=== PATIENT | female | born 1990 ===

== ENCOUNTER 2017-03-12 16:47 | Inpatient (IN) | payer BC, MEDICAID ==
[2017-03-12 16:48] VITALS: BMI 49.3
[2017-03-12] MEDS ORDERED: Sodium Chloride 0.9% 1,000 ML IV STA (18:00)
--- NOTE | 2017-03-12 18:35 | ED PDOC ---
HPI: Skin/Bite Injury Time Seen by Provider: 03/12/17 17:42 Chief Complaint (Nursing): Eye Problem Chief Complaint (Provider): Skin Injury History Per: Patient History/Exam Limitations: no limitations Onset/Duration Of Symptoms: Hrs (since earlier today) Current Symptoms Are (Timing): Still Present Location Of Injury: Right: Face Quality Of Symptoms: Painful, Swollen Additional Complaint(s): 26 year old female presents to ED with complaints of swelling and pain on right aspect of her face since this morning. Patient states that her mother popped a pimple x3 days ago on that area of her face. (-) fever, visual changes, eye pain , or pain on eye movement. Confirms that she has not taken any medication. PCP: Non KRISTIAN Past Medical History Reviewed: Historical Data, Nursing Documentation, Vital Signs Vital Signs: Last Vital Signs Temp 101.1 F H 03/12/17 16:58 Pulse 90 03/12/17 16:58 Resp BP 134/62 03/12/17 16:58 Pulse Ox 98 03/12/17 16:58 - Medical History PMH: Kidney Stones - Family History Family History: States: Unknown Family Hx - Living Arrangements Living Arrangements: With Family - Immunization History Hx Tetanus Toxoid Vaccination: No Hx Influenza Vaccination: No Hx Pneumococcal Vaccination: No - Home Medications Home Medications: Ambulatory Orders Medication Instructions Recorded Vit#96/Ferrous Fum/FA 1 tab PO DAILY 03/03/15 [] Nitrofurantoin Macrocrystal 100 mg PO BID #14 capsule 02/07/16 [Macrodantin] - Allergies Allergies/Adverse Reactions: Allergies Allergy/AdvReac Type Severity Reaction Status Date / Time No Known Allergies Allergy Verified 03/22/15 23:33 Review of Systems ROS Statement: Except As Marked, All Systems Reviewed And Found Negative Constitutional: Positive for: Fever Eyes: Negative for: Pain, Vision Change, Other (pain on eye movement ) Musculoskeletal: Positive for: Other (Facial swelling and pain on right/lateral aspect of face) Physical Exam - Reviewed Nursing Documentation Reviewed: Yes Vital Signs Reviewed: Yes - Physical Exam Appears: Positive for: Non-toxic, No Acute Distress Skin: Positive for: Warm, Dry. Negative for: Normal Color (Right lateral aspect of face: 0.5 cm lesion, no active discharge. Edema, induration.) Eye Exam: Positive for: Normal appearance, EOMI, PERRL, Other (edema to lateral right eye, no fluctuance, no proptosis). Negative for: Conjunctival injection ENT: Positive for: Other (preauricular adenopathy) Cardiovascular/Chest: Positive for: Regular Rate, Rhythm. Negative for: Murmur Respiratory: Positive for: Normal Breath Sounds. Negative for: Respiratory Distress Gastrointestinal/Abdominal: Positive for: Normal Exam, Soft. Negative for: Tenderness Back: Positive for: Normal Inspection Extremity: Positive for: Normal ROM. Negative for: Deformity Neurologic/Psych: Positive for: Alert, Oriented. Negative for: Motor/Sensory Deficits - ECG O2 Sat by Pulse Oximetry: 98 (RA) Pulse Ox Interpretation: Normal Medical Decision Making Medical Decision Makin Initial impression: facial cellulitis Initial plan: * VBG Shock Panel * Labs * NS IV * Toradol 15mg IV * Tylenol 650mg PO * Vancomycin IVPB * BCx * Wound Cx Scribe Attestation: Documented by Mamta Arreola acting as a scribe for Adali Osborn MD. Scribe Attestation: All medical record entries made by the Scribe were at my direction and personally dictated by me. I have reviewed the chart and agree that the record accurately reflects my personal performance of the history, physical exam, medical decision making, and the department course for this patient. I have also personally directed, reviewed, and agree with the discharge instructions and disposition.
[2017-03-12] MEDS ORDERED: Vancomycin 1 g Inj ONE (18:45)
[2017-03-12 18:48] LABS: VENOUS BLOOD GAS BASE EXCESS -0.6 mmol/L (0.0-2.0); VENOUS BLOOD GAS PCO2 43 mmHg (40-60); VENOUS BLOOD PH 7.37 (7.32-7.43)
[2017-03-12 19:01] LABS: BASO # 0.1 K/uL (0.0-0.2); BASO % 0.4 % (0.0-2.0); EOS # 0.4 K/uL (0.0-0.7); EOS % 2.3 % (0.0-4.0); HEMATOCRIT 40.2 % (34.0-47.0); LYMPH # 2.3 K/uL (1.0-4.3); LYMPH % 13.1 % (20.0-40.0); MEAN CELL VOLUME 83.5 fl (81.0-99.0); MEAN CORPUSCULAR HEMOGLOBIN 26.1 pg (27.0-31.0); MEAN CORPUSCULAR HGB CONC 31.3 g/dL (33.0-37.0); MEAN PLATELET VOLUME 8.8 fl (7.2-11.7); MONO # 1.2 K/uL (0.0-0.8); MONO % 6.9 % (0.0-10.0); NEUT # 13.7 K/uL (1.8-7.0); NEUT % 77.3 % (50.0-75.0); RED CELL DISTRIBUTION WIDTH 15.4 % (11.5-14.5); WHITE BLOOD COUNT 17.7 K/uL (4.8-10.8)
[2017-03-12 19:15] LABS: ALB/GLOB RATIO 1.3 (1.0-2.1); ALKALINE PHOSPHATASE 83 U/L (38-126); ALT/SGPT 33 U/L (9-52); AST/SGOT 30 U/L (14-36); BILIRUBIN,TOTAL 0.2 mg/dl (0.2-1.3); BLOOD UREA NITROGEN 11 mg/dl (7-17); CALCIUM 9.3 mg/dL (8.4-10.2); CARBON DIOXIDE 23 mmol/L (22-30); CHLORIDE 106 mmol/L (98-107); GFR AFRICAN-AMERICAN > 60; GLUCOSE,RANDOM 90 mg/dL (65-105); POTASSIUM 3.8 MMOL/L (3.6-5.0); SODIUM 143 mmol/l (132-148); TOTAL PROTEIN 8.2 G/DL (6.3-8.2)
--- NOTE | 2017-03-12 19:23 | ED PDOC ---
- Laboratory Results Result Diagrams: 03/12/17 18:30 03/12/17 18:30 - ECG O2 Sat by Pulse Oximetry: 98 (RA) Medical Decision Making Medical Decision Makin Patient signed out to me from Dr. Osborn pending labs and discharge with antibiotics. wbc elevated pt will be adm for iv abx for facial cellulitis 2117 Patient will be admitted to med/surg under Dr. Justina gardiner aware vanco was given Scribe Attestation: Documented by Mamta Arreola acting as a scribe for Enrique Rivas MD. Scribe Attestation: All medical record entries made by the Scribe were at my direction and personally dictated by me. I have reviewed the chart and agree that the record accurately reflects my personal performance of the history, physical exam, medical decision making, and the department course for this patient. I have also personally directed, reviewed, and agree with the discharge instructions and disposition. Disposition Counseled Patient/Family Regarding: Studies Performed, Diagnosis - Clinical Impression Clinical Impression: Cellulitis - POA Present On Arrival: None - Disposition Disposition: Admitted as In-Patient Disposition Time: 21:00 Condition: STABLE
[2017-03-13] MEDS ORDERED: Pneumococcal 23-Valent Vaccine IM ONE (09:00)
[2017-03-13] MEDS ORDERED: Piperacillin/Tazobact 3.375 GM in Sodium Chloride 0.9% 100 ML IVPB SCH (09:45)
[2017-03-13] MEDS ORDERED: Iohexol 300 100 ML IJ ONE (12:28)
[2017-03-13] MEDS ORDERED: Sodium Chloride 0.9% 50 ML IV ONE (12:28)
--- NOTE | 2017-03-13 13:02 | CP.PCM.CON ---
<Catie English - Last Filed: 03/13/17 13:39> History of Present Illness - History of Present Illness History of Present Illness: General Surgery consult note for Dr. Brice Consulted for: facial cellulitis vs abscess Patient is a 26F with PMH of scoliosis and PSH of BL breast reduction who presented for facial swelling and erythema. Patient had a pimple on her right denominational 5 days that she attempted to pop. Over the course of the weekend the area became more swollen and erythematous and yesterday spread to the right orbit so she came to the ER. Patient denies any current drainage from the site. Patient states the vision in her right eye is blurry due to constant drainage of clear fluid and that she has a right sided headach, but denies any difficulty hearing, drainage or fullness in the mouth, or any fevers or chills. States that this has never happened to her before. Afebrile, VSS WBC: 17.7 PMH: scoliosis PSH: BL breast reduction ALL: NKDA Review of Systems - Review of Systems All systems: reviewed and no additional remarkable complaints except (as per HPI ) - Constitutional Constitutional: Headache. absent: Chills, Fever, Weakness - EENT Eyes: Blurred Vision (right eye), Discharge (clear watery discharge from right eye), Other (renzo-orbital swelling) Ears: absent: Ear Discharge, Ear Pain, Dizziness Nose/Mouth/Throat: absent: Nasal Obstruction, Nose Pain, Sinus Pressure, Dental Pain, Mouth Lesions, Mouth Pain - Cardiovascular Cardiovascular: absent: Chest Pain, Dyspnea, Dyspnea on Exertion - Respiratory Respiratory: absent: Dyspnea, Dyspnea on Exertion, Wheezing - Gastrointestinal Gastrointestinal: absent: Abdominal Pain, Nausea, Vomiting - Musculoskeletal Musculoskeletal: absent: Neck Pain, Numbness, Tingling - Integumentary Integumentary: As Per HPI - Neurological Neurological: absent: Dizziness, Numbness, Tingling Past Patient History - Past Medical History & Family History Past Medical History?: No - Past Social History Smoking Status: Light Smoker < 10 Cigarettes Daily - RENAL Hx Kidney Stones: Yes - MUSCULOSKELETAL/RHEUMATOLOGICAL Hx Falls: No Hx Osteoarthritis: Yes Other/Comment: scoliosis - GASTROINTESTINAL Other/Comment: kidney stones - GENITOURINARY/GYNECOLOGICAL Other/Comment: std - PSYCHIATRIC Hx Substance Use: No - SURGICAL HISTORY Other/Comment: breast reduction 2014, d&c - ANESTHESIA Hx Anesthesia: Yes Hx Anesthesia Reactions: No Meds Allergies/Adverse Reactions: Allergies Allergy/AdvReac Type Severity Reaction Status Date / Time No Known Allergies Allergy Verified 03/22/15 23:33 - Medications Medications: Current Medications Acetaminophen (Tylenol 325mg Tab) 650 mg PO Q4 PRN PRN Reason: Headache Last Admin: 03/13/17 08:58 Dose: 650 mg Vancomycin HCl 1 gm/ Sodium (Chloride) 250 mls @ 166.667 mls/hr IVPB Q12 [facility] Piperacillin Sod/Tazobactam (Sod 3.375 gm/ Sodium Chloride) 100 mls @ 100 mls/ hr IVPB Q8 [facility] Ketorolac Tromethamine (Toradol) 15 mg IVP Q6 PRN PRN Reason: Pain, moderate (4-7) Physical Exam - Constitutional Appears: Well, Non-toxic, No Acute Distress - Head Exam Additional comments: superficial wound approximatley 1cm long on the superior right denominational with surrounding area of erythema, swelling, and induration extending from the denominational up to the hairline superiorly, the right cheek inferiorly, and the right orbit with moderate edema of the renzo-orbital area. No distinct fluctuance or expressible drainage - Eye Exam Eye Exam: EOMI, Periorbital swelling (Right), PERRL. absent: Conjunctival injection, Scleral icterus Pupil Exam: PERRL Additional comments: Right eye watery but No thick or discolored discharge from the right eye - ENT Exam ENT Exam: Mucous Membranes Moist, Normal Oropharynx Additional comments: No swelling or erythema of the palate, no drainage or lesions - Neck Exam Neck exam: Positive for: Full Rom, Lymphadenopathy (anterior cervical). Negative for: Tenderness - Respiratory Exam Respiratory Exam: NORMAL BREATHING PATTERN. absent: Accessory Muscle Use, Respiratory Distress - Cardiovascular Exam Cardiovascular Exam: RRR - GI/Abdominal Exam GI & Abdominal Exam: Soft. absent: Distended, Tenderness - Extremities Exam Extremities exam: Positive for: pedal pulses present. Negative for: calf tenderness, pedal edema - Neurological Exam Neurological exam: Alert, CN II-XII Intact, Oriented x3 - Psychiatric Exam Psychiatric exam: Normal Affect, Normal Mood - Skin Skin Exam: Dry, Normal Color, Warm Additional comments: except as noted in the head/eye exam Results - Vital Signs Recent Vital Signs: Last Vital Signs Temp 98.3 F 03/13/17 09:00 Pulse 76 03/13/17 07:34 Resp 18 03/13/17 07:34 BP 130/87 03/13/17 07:34 Pulse Ox 98 03/13/17 07:34 - Labs Result Diagrams: 03/12/17 18:30 03/12/17 18:30 Assessment & Plan - Assessment and Plan (Free Text) Assessment: 26F with cellulitis of the right upper face and R renzo-oribital swelling WBC: 17.7 No palpable abscess renzo-orbital swelling Plan: -CT of the face and orbit to rule out any renzo-orbital cellulitis and determine extent of involvement -Continue IV antibiotics -No plans for immediate surgical intervention: follow up CT results to determine if there is a drainable collection -Warm compresses -analgesia, anti-emetics -SCD's, GI ppx -management per Primary Further recs per Dr. Yuniel English, PGY1 <Marco Brice - Last Filed: 03/14/17 21:24> Meds - Medications Medications: Current Medications Acetaminophen (Tylenol 325mg Tab) 650 mg PO Q4 PRN PRN Reason: Headache Last Admin: 03/13/17 08:58 Dose: 650 mg Piperacillin Sod/Tazobactam (Sod 3.375 gm/ Sodium Chloride) 100 mls @ 100 mls/ hr IVPB Q8@0500,1300,2100 [facility] Last Admin: 03/14/17 12:18 Dose: 100 mls/hr Vancomycin HCl 1 gm/ Sodium (Chloride) 250 mls @ 166.667 mls/hr IVPB Q12@0200, 1400 [facility] Last Admin: 03/14/17 13:31 Dose: 166.667 mls/hr Sodium Chloride (Sodium Chloride 0.9%) 1,000 mls @ 125 mls/hr IV .Q8H [facility] Stop: 03/15/17 16:00 Ketorolac Tromethamine (Toradol) 15 mg IVP Q6 PRN PRN Reason: Pain, moderate (4-7) Last Admin: 03/14/17 20:00 Dose: 15 mg Results - Vital Signs Recent Vital Signs: Last Vital Signs Temp 98.2 F 03/14/17 16:08 Pulse 71 03/14/17 16:08 Resp 16 03/14/17 16:08 BP 113/73 03/14/17 16:08 Pulse Ox 98 03/14/17 16:08 - Labs Result Diagrams: 03/14/17 07:30 03/14/17 07:30 Labs: Laboratory Results - last 24 hr 03/14/17 03/14/17 03/14/17 07:30 07:30 12:20 WBC 10.8 RBC 4.17 Hgb 11.0 L Hct 34.7 MCV 83.3 MCH 26.5 L MCHC 31.8 L RDW 15.2 H Plt Count 287 PT 11.8 INR 1.0 APTT 27.2 Sodium 141 Potassium 4.0 Chloride 110 H Carbon Dioxide 22 Anion Gap 13 BUN 10 Creatinine 0.8 Est GFR ( Amer) > 60 Est GFR (Non-Af Amer) > 60 Random Glucose 86 Calcium 8.7 Attending/Attestation - Attestation I have personally seen and examined this patient.: Yes I have fully participated in the care of the patient.: Yes I have reviewed all pertinent clinical information: Yes Notes (Text): 03/14/17 21:22 Pt was seen and examined at bedside on 03/13/17 Agree with above note and assessment Pt with Facial cellulitis with right Periorbital edema No obvious abscess IV antibiotics No need for I & D at present Plan d.w pt in detail.
--- NOTE | 2017-03-13 13:27 | CT ---
PROCEDURE: CT scan orbits dated 03/13/2017 HISTORY: Rule out orbital cellulitis COMPARISON: No prior TECHNIQUE: Following intravenous injection of approximately 95 cc Omnipaque 300 contrast contiguous helical/ transaxial sections of the orbits were obtained. Coronal and sagittal reformats were generated. Radiation dose: Total exam DLP = 430.21 mGy-cm. This CT exam was performed using one or more of the following dose reduction techniques: Automated exposure control, adjustment of the mA and/or kV according to patient size, and/or use of iterative reconstruction technique. . FINDINGS: Findings: Current study reveals mild right periorbital soft tissue swelling most pronounced in the lateral periorbital region extending posteriorly over right frontoparietal region and infratemporal fossa. There is also mild inferior extension into the premaxillary soft tissues. No definitive discrete fluid collection or abscess seen. There is no evidence of preseptal extension. Globes are intact and lenses appropriately located. No retrobulbar hemorrhages or collections. Optic nerves and extraocular musculature unremarkable. The frontal sinuses are slightly underpneumatized. Remaining visualized paranasal sinuses well-developed and currently well-aerated. Incidental note made of cavum septum pellucidum and vergae. Note also made of an in situ right nares ring. Impression: Findings consistent with right-sided periorbital and facial cellulitis however no evidence of discrete fluid collection or abscess. No evidence of retro septal extension.
[2017-03-13 17:59] LABS: BASO # 0.1 K/uL (0.0-0.2); BASO % 0.4 % (0.0-2.0); EOS # 0.4 K/uL (0.0-0.7); EOS % 3.4 % (0.0-4.0); HEMATOCRIT 34.1 % (34.0-47.0); LYMPH # 2.8 K/uL (1.0-4.3); LYMPH % 23.2 % (20.0-40.0); MEAN CELL VOLUME 82.2 fl (81.0-99.0); MEAN CORPUSCULAR HEMOGLOBIN 26.9 pg (27.0-31.0); MEAN CORPUSCULAR HGB CONC 32.8 g/dL (33.0-37.0); MEAN PLATELET VOLUME 8.6 fl (7.2-11.7); NEUT # 7.7 K/uL (1.8-7.0); RED CELL DISTRIBUTION WIDTH 15.3 % (11.5-14.5); WHITE BLOOD COUNT 11.9 K/uL (4.8-10.8)
--- NOTE | 2017-03-13 18:37 | HP ---
CHIEF COMPLAINT: Facial swelling and pain. HISTORY OF PRESENT ILLNESS: This is a 26-year-old female without significant past medical history wh o had a small pimple on her right episcopalian a few days ago, which she with help from mother tried to pre ss and burst it out, and then patient started having swelling, redness, fever, malaise of the face, s o patient was brought to Emergency Room where the patient was found to have cellulitis of face and wa s admitted for further management. REVIEW OF SYSTEMS: Positive for fever, malaise, swelling of face and eyelids, and purulent discharge from the opening. Review of systems otherwise is negative for headache, dizziness, syncope, loss of consciousness, chest pain, shortness of breath, nausea, vomiting, diarrhea, constipation. Review of systems of all other organ systems is unremarkable. PAST MEDICAL HISTORY: Unremarkable. PAST SURGICAL HISTORY: Unremarkable. PERSONAL HISTORY: The patient is currently a nonsmoker or social drinker. No substance abuse. MEDICATIONS: The patient is not on any medications. ALLERGIES: The patient is not allergic to any medication. FAMILY HISTORY: Noncontributory. PHYSICAL EXAMINATION: GENERAL: Well-built, well-nourished, morbidly obese female in no acute distress. VITAL SIGNS: Temperature 97.9, pulse 77, respirations 20, blood pressure 110/74. HEENT: Pupils reacting to light. No JVD, no thyromegaly, no lymphadenopathy, no nystagmus. Normoce phalic, atraumatic skull. HEART: S1, S2 normal, regular. No significant murmur, gallop, or rub is heard. LUNGS: Show good bilateral air entry. No rales or rhonchi. ABDOMEN: Soft, nontender, no organomegaly, no fluid. Bowel sounds are plus. EXTREMITIES: No edema, no calf swelling. No tenderness, no acute ischemia. CENTRAL NERVOUS SYSTEM: Essentially unchanged. FACE: Facial exam shows marked swelling and cellulitis by its opening on right episcopalian with some puru lent base. Vision is normal, but patient has significant edema on both eyelids. DIAGNOSTIC DATA: Available diagnostic data reviewed. WBC 17.7, hemoglobin 12.6, hematocrit 40.2, pl atelets 313. Sodium 142, potassium 3.8, chloride 106, bicarb 23, BUN 11, creatinine 0.8. SMA-12 is unremarkable. ADMITTING IMPRESSION: Facial cellulitis, morbid obesity. PLAN: As ordered. Case and plan discussed with patient. Lucas Horn MD cc: [phone] TT: 03/13/2017 18:37:15 peggy
[2017-03-13] MEDS: Piperacillin/Tazobact 3.375 GM in Sodium Chloride 0.9% 100 ML IVPB SCH (21:38)
[2017-03-14] MEDS: Piperacillin/Tazobact 3.375 GM in Sodium Chloride 0.9% 100 ML IVPB SCH ×3 (04:10→22:16)
--- NOTE | 2017-03-14 06:42 | CP.PCM.PN ---
Subjective - Date & Time of Evaluation Date of Evaluation: 03/14/17 Time of Evaluation: 06:42 - Subjective Subjective: Patient seen and examined at bedside with attending. 26F reports pain has improved but says she had drainage last night onto her pillow. She denies any SOB, chest pain, N/V, dysuria. Objective - Vital Signs/Intake and Output Vital Signs (last 24 hours): Temp Pulse Resp BP Pulse Ox 37.1 C 64 18 106/61 98 03/14/17 02:26 03/14/17 02:26 03/14/17 02:26 03/14/17 02:26 03/14/17 02:26 - Medications Medications: Current Medications Acetaminophen (Tylenol 325mg Tab) 650 mg PO Q4 PRN PRN Reason: Headache Last Admin: 03/13/17 08:58 Dose: 650 mg Piperacillin Sod/Tazobactam (Sod 3.375 gm/ Sodium Chloride) 100 mls @ 100 mls/ hr IVPB Q8@0500,1300,2100 [facility] Last Admin: 03/14/17 04:10 Dose: 100 mls/hr Vancomycin HCl 1 gm/ Sodium (Chloride) 250 mls @ 166.667 mls/hr IVPB Q12@0200, 1400 [facility] Last Admin: 03/14/17 01:16 Dose: 166.667 mls/hr Ketorolac Tromethamine (Toradol) 15 mg IVP Q6 PRN PRN Reason: Pain, moderate (4-7) Last Admin: 03/14/17 06:38 Dose: 15 mg - Labs Labs: 03/13/17 17:52 - Constitutional Appears: Well, Non-toxic, No Acute Distress - Head Exam Head Exam: ATRAUMATIC. absent: NORMAL INSPECTION (3cm abscess with trace purulent drainage at RIGHT temporal area) - Eye Exam Eye Exam: EOMI, Normal appearance, PERRL. absent: Nystagmus, Periorbital swelling, Periorbital tenderness - ENT Exam ENT Exam: Mucous Membranes Moist, Normal Exam - Neck Exam Neck Exam: Full ROM, Normal Inspection - Respiratory Exam Respiratory Exam: Clear to Ausculation Bilateral, NORMAL BREATHING PATTERN. absent: Rales, Wheezes - Cardiovascular Exam Cardiovascular Exam: REGULAR RHYTHM, +S1, +S2. absent: JVD - GI/Abdominal Exam GI & Abdominal Exam: Soft, Normal Bowel Sounds. absent: Tenderness - Extremities Exam Extremities Exam: Full ROM, Normal Capillary Refill, Normal Inspection. absent : Pedal Edema - Neurological Exam Neurological Exam: Alert, Awake, Oriented x3 - Psychiatric Exam Psychiatric exam: Normal Affect, Normal Mood - Skin Skin Exam: Normal Color, Warm Assessment and Plan (1) Cellulitis and abscess of face Assessment & Plan: Cellulitis has improved and abscess inadequately draining, surgery to I&D tomorrow 03/15. Culture- MRSA. - ID Consult (Dr Spears): c/w Zosyn/Vancomycin; January d/c on Clindamycin or Bactrim - Surgery Consult: I&D in the AM, NPO/IVF, HOLD Lovenox, SCDs Status: Acute (2) DVT prophylaxis Assessment & Plan: SCDs until after surgical procedure Status: Acute
[2017-03-14 07:59] LABS: HEMATOCRIT 34.7 % (34.0-47.0); MEAN CELL VOLUME 83.3 fl (81.0-99.0); MEAN CORPUSCULAR HEMOGLOBIN 26.5 pg (27.0-31.0); MEAN CORPUSCULAR HGB CONC 31.8 g/dL (33.0-37.0); RED CELL DISTRIBUTION WIDTH 15.2 % (11.5-14.5); WHITE BLOOD COUNT 10.8 K/uL (4.8-10.8)
[2017-03-14 08:16] LABS: BLOOD UREA NITROGEN 10 mg/dl (7-17); CALCIUM 8.7 mg/dL (8.4-10.2); CARBON DIOXIDE 22 mmol/L (22-30); CHLORIDE 110 mmol/L (98-107); GFR AFRICAN-AMERICAN > 60; GLUCOSE,RANDOM 86 mg/dL (65-105); SODIUM 141 mmol/l (132-148)
--- NOTE | 2017-03-14 09:35 | PQF BMI ---
This form is a permanent part of the medical record 03/14/17 Dr. Horn, Would you please document the BMI in your progress note. Documentation of morbid obesity. As per the EMR the patient is listed as 4'8", 210 pounds with a BMI of 47.1 Clarification of your documentation is requested to better reflect the severity of illness and intensity of treatment of your patient. Indicators present [x] Documented BMI>40 [] Nutritional/Drier Operator Helper consults [] 100 pounds or more over ideal body weight [] Documented BMI / HT & WT [] Other : [] Location in the medical record that reflects the above clinical findings: [] Other Treatment Provided: [] PHYSICIAN'S RESPONSE Based on your medical judgment of the clinical indicators outlined above, please define the following: [] Morbid obesity [] Obesity [] BMI of [] Other [] [] If unable to determine, please check the box, sign and date. Present On Admission (POA) Indicator: [] Present at the time of admission [] Not present at the time of admission [] Clinically Undetermined In responding to this query, please exercise your independent professional judgment. The fact that a question is asked does not imply that any particular answer is desired or expected. Thank you for your clarification on this documentation. If you have any questions please call:[phone] * Thank you, Donna Niño RN CDMP MTDD
--- NOTE | 2017-03-14 12:10 | CP.PCM.PN ---
<EnglishCatie montes de oca - Last Filed: 03/14/17 12:12> Subjective - Date & Time of Evaluation Date of Evaluation: 03/14/17 Time of Evaluation: 07:50 - Subjective Subjective: Pt s/e at bedside this AM. Patient states that pain is improved and swelling is decreased and she no longer has watery discharge or blurring vision in her right eye. Also states that a small amount of drainage began last night with the warm compresses Objective - Vital Signs/Intake and Output Vital Signs (last 24 hours): Temp Pulse Resp BP Pulse Ox 98.4 F 71 18 110/74 97 03/14/17 08:40 03/14/17 08:40 03/14/17 08:40 03/14/17 08:40 03/14/17 08:40 - Medications Medications: Current Medications Acetaminophen (Tylenol 325mg Tab) 650 mg PO Q4 PRN PRN Reason: Headache Last Admin: 03/13/17 08:58 Dose: 650 mg Piperacillin Sod/Tazobactam (Sod 3.375 gm/ Sodium Chloride) 100 mls @ 100 mls/ hr IVPB Q8@0500,1300,2100 [facility] Last Admin: 03/14/17 04:10 Dose: 100 mls/hr Vancomycin HCl 1 gm/ Sodium (Chloride) 250 mls @ 166.667 mls/hr IVPB Q12@0200, 1400 [facility] Last Admin: 03/14/17 01:16 Dose: 166.667 mls/hr Sodium Chloride (Sodium Chloride 0.9%) 1,000 mls @ 125 mls/hr IV .Q8H [facility] Stop: 03/15/17 16:00 Ketorolac Tromethamine (Toradol) 15 mg IVP Q6 PRN PRN Reason: Pain, moderate (4-7) Last Admin: 03/14/17 11:46 Dose: 15 mg - Labs Labs: 03/14/17 07:30 03/14/17 07:30 - Constitutional Appears: Well, Non-toxic, No Acute Distress - Head Exam Head Exam: ATRAUMATIC, NORMOCEPHALIC Additional comments: 1cm long laceration in the right temporal skin. No expressible drainage. Area of swelling approximately 3cm in circumference with induration and mild fluctuance. Surrounding erythema resolved. - Eye Exam Eye Exam: EOMI. absent: Conjunctival injection, Scleral icterus Additional comments: Trace right renzo-orbital swelling much improved since yesterday. - ENT Exam ENT Exam: Mucous Membranes Moist, Normal Oropharynx - Neck Exam Neck Exam: Full ROM, Normal Inspection. absent: Tenderness - Respiratory Exam Respiratory Exam: NORMAL BREATHING PATTERN. absent: Accessory Muscle Use, Respiratory Distress - Cardiovascular Exam Cardiovascular Exam: RRR - GI/Abdominal Exam GI & Abdominal Exam: Soft. absent: Distended - Extremities Exam Extremities Exam: absent: Calf Tenderness, Pedal Edema, Tenderness - Neurological Exam Neurological Exam: Alert, Awake, Oriented x3 - Psychiatric Exam Psychiatric exam: Normal Affect, Normal Mood - Skin Additional comments: Warm, dry, and intact except as noted in the head exam Assessment and Plan - Assessment and Plan (Free Text) Assessment: 26F with cellulitis and abscess of the right upper face afebrile, VSS Erythema/swelling much improved since yesterday, with only trace renzo-orbital swelling More distinct area of subcutaneous swelling with mild fluctuance CT of the face and orbit 03/13 showed cellulitis and swelling in the renzo- orbital structures but no involvement extending deep to the septum WBC: 10.8 down from 17.7 yesterday Plan: -OR tomorrow AM for I&D of R facial abscess -Continue IV antibiotics -Warm compresses -NPO after midnight with IVF -analgesia, anti-emetics -SCD's, GI ppx -management per Primary Discussed with Dr. Yuniel English, PGY1 <Marco Brice - Last Filed: 03/14/17 21:30> Objective - Vital Signs/Intake and Output Vital Signs (last 24 hours): Temp Pulse Resp BP Pulse Ox 98.2 F 71 16 113/73 98 03/14/17 16:08 03/14/17 16:08 03/14/17 16:08 03/14/17 16:08 03/14/17 16:08 - Medications Medications: Current Medications Acetaminophen (Tylenol 325mg Tab) 650 mg PO Q4 PRN PRN Reason: Headache Last Admin: 03/13/17 08:58 Dose: 650 mg Piperacillin Sod/Tazobactam (Sod 3.375 gm/ Sodium Chloride) 100 mls @ 100 mls/ hr IVPB Q8@0500,1300,2100 [facility] Last Admin: 03/14/17 12:18 Dose: 100 mls/hr Vancomycin HCl 1 gm/ Sodium (Chloride) 250 mls @ 166.667 mls/hr IVPB Q12@0200, 1400 [facility] Last Admin: 03/14/17 13:31 Dose: 166.667 mls/hr Sodium Chloride (Sodium Chloride 0.9%) 1,000 mls @ 125 mls/hr IV .Q8H [facility] Stop: 03/15/17 16:00 Ketorolac Tromethamine (Toradol) 15 mg IVP Q6 PRN PRN Reason: Pain, moderate (4-7) Last Admin: 03/14/17 20:00 Dose: 15 mg - Labs Labs: 03/14/17 07:30 03/14/17 07:30 PT 11.8 Seconds (9.8-13.1) 03/14/17 12:20 INR 1.0 (0.9-1.2) 03/14/17 12:20 APTT 27.2 Seconds (25.6-37.1) 03/14/17 12:20 Attending/Attestation - Attestation I have personally seen and examined this patient.: Yes I have fully participated in the care of the patient.: Yes I have reviewed all pertinent clinical information, including history, physical exam and plan: Yes Notes (Text): 03/14/17 21:28 Pt was seen and examined at bedside on 03/14/17 Agree with above note and assessment Pt with improving facial cellulitis Area of flactuation with possible abscess IV antibiotics OR tomorrow for I & D Consent Plan d.w pt in detail. Risk and benefit explained in detail.
[2017-03-14 13:52] LABS: PARTIAL THROMBOPLASTIN TIME 27.2 Seconds (25.6-37.1)
--- NOTE | 2017-03-14 17:48 | CP.PCM.PN ---
Subjective - Date & Time of Evaluation Date of Evaluation: 03/14/17 Time of Evaluation: 17:40 - Subjective Subjective: I D NOTE PATIENT IS COMPLAINING OF PRESSURE BEHIND EYE ,AND SOME VIEWING DISCOMFORT WILL HAVE SURGICAL DRAINAGE TOMORROW HAS MRSA WOULD CONTINUE VANCOMYCIN/ZOSYN DISCUSSED CASE IN DETAIL C Objective - Vital Signs/Intake and Output Vital Signs (last 24 hours): Temp Pulse Resp BP Pulse Ox 98.2 F 71 16 113/73 98 03/14/17 16:08 03/14/17 16:08 03/14/17 16:08 03/14/17 16:08 03/14/17 16:08 - Medications Medications: Current Medications Acetaminophen (Tylenol 325mg Tab) 650 mg PO Q4 PRN PRN Reason: Headache Last Admin: 03/13/17 08:58 Dose: 650 mg Piperacillin Sod/Tazobactam (Sod 3.375 gm/ Sodium Chloride) 100 mls @ 100 mls/ hr IVPB Q8@0500,1300,2100 [facility] Last Admin: 03/14/17 12:18 Dose: 100 mls/hr Vancomycin HCl 1 gm/ Sodium (Chloride) 250 mls @ 166.667 mls/hr IVPB Q12@0200, 1400 [facility] Last Admin: 03/14/17 13:31 Dose: 166.667 mls/hr Sodium Chloride (Sodium Chloride 0.9%) 1,000 mls @ 125 mls/hr IV .Q8H [facility] Stop: 03/15/17 16:00 Ketorolac Tromethamine (Toradol) 15 mg IVP Q6 PRN PRN Reason: Pain, moderate (4-7) Last Admin: 03/14/17 11:46 Dose: 15 mg - Labs Labs: 03/14/17 07:30 03/14/17 07:30 PT 11.8 Seconds (9.8-13.1) 03/14/17 12:20 INR 1.0 (0.9-1.2) 03/14/17 12:20 APTT 27.2 Seconds (25.6-37.1) 03/14/17 12:20
[2017-03-15] MEDS: Sodium Chloride 0.9% 1,000 ML IV SCH ×2 (00:24→09:50)
[2017-03-15] MEDS: Piperacillin/Tazobact 3.375 GM in Sodium Chloride 0.9% 100 ML IVPB SCH ×3 (05:10→20:45)
[2017-03-15 07:14] LABS: HEMATOCRIT 34.9 % (34.0-47.0); MEAN CELL VOLUME 83.2 fl (81.0-99.0); MEAN CORPUSCULAR HGB CONC 32.5 g/dL (33.0-37.0); RED CELL DISTRIBUTION WIDTH 15.5 % (11.5-14.5); WHITE BLOOD COUNT 10.8 K/uL (4.8-10.8)
[2017-03-15 07:26] LABS: BLOOD UREA NITROGEN 11 mg/dl (7-17); CALCIUM 8.6 mg/dL (8.4-10.2); CARBON DIOXIDE 23 mmol/L (22-30); CHLORIDE 108 mmol/L (98-107); GFR AFRICAN-AMERICAN > 60; GLUCOSE,RANDOM 86 mg/dL (65-105); SODIUM 141 mmol/l (132-148)
--- NOTE | 2017-03-15 08:25 | PN ---
DATE: 03/15/2017 The patient seen and examined. Interim events noted. Consults noted, appreciated. Head Miller foll owup and interventions noted and appreciated. The patient remains in isolation room because of MRSA in abscess. The patient feels okay. , but no chest pain, no shortness of breath. PHYSICAL EXAMINATION: GENERAL: The patient is in no acute distress. VITAL SIGNS: Stable. HEART: S1, S2 normal, regular. LUNGS: Good bilateral air entry. ABDOMEN: Soft, nontender. EXTREMITIES: No edema, no calf swelling, no tenderness, no acute ischemia. CENTRAL NERVOUS SYSTEM: Essentially unchanged. DIAGNOSTIC DATA: Available reviewed. Wound culture is positive for MRSA, sensitive to current antib iotic of vancomycin. PLAN: As ordered. Case and plan discussed with patient. Lucas oHrn MD cc: [id number] TT: 03/15/2017 08:24:49 Confirmation # [id number] Dictation # [id number] en
--- NOTE | 2017-03-15 10:13 | RAD ---
HISTORY: Pre-op COMPARISON: None available. TECHNIQUE: Chest PA and lateral FINDINGS: LUNGS: No focal consolidation. Please note that chest x-ray has limited sensitivity for the detection of pulmonary masses. PLEURA: No significant pleural effusion identified. No definite pneumothorax . CARDIOVASCULAR: The cardiomediastinal silhouette appears within normal limits of size. OSSEOUS STRUCTURES: No acute osseous abnormality identified. VISUALIZED UPPER ABDOMEN: Unremarkable. OTHER FINDINGS: None. IMPRESSION: No focal consolidation, significant pleural effusion, or definite pneumothorax identified.
[2017-03-15] MEDS ORDERED: Bupivacaine 0.5% 50 ML IJ ONE (11:30)
[2017-03-15] MEDS ORDERED: HYDROmorphone 0.5 mg/0.5 ml ISec IVP PRN (12:02)
[2017-03-15] MEDS ORDERED: Lactated Ringer's 500 ML IV ONE (12:03)
--- NOTE | 2017-03-15 12:08 | PCM.SURG1 ---
Surgeon's Initial Post Op Note - Surgeon's Notes Surgeon: Dr. Brice Concierge: Dr. Robles Type of Anesthesia: IV Sedation, Local Anesthesia Administered By: Adis Pre-Operative Diagnosis: Right forehead abscess Operative Findings: same Post-Operative Diagnosis: same Operation Performed: INcision and Drainage R Forehead Abscess Specimen/Specimens Removed: culture Estimated Blood Loss: EBL {In ML}: 5 Blood Products Given: N/A Drains Used: No Drains Post-Op Condition: Good Date of Surgery/Procedure: 03/15/17 Time of Surgery/Procedure: 12:07
[2017-03-15] MEDS ORDERED: Oxycodone/Acetaminophen 5/325 mg Tab PO PRN (12:11)
--- NOTE | 2017-03-15 15:15 | CARD ---
APPROVED REPORT EKG Measurement Heart [id number] <Conclusion> Sinus bradycardia with sinus arrhythmia Otherwise normal ECG
[2017-03-15] MEDS: Lactated Ringer's 1,000 ML IV SCH (17:25)
--- NOTE | 2017-03-15 18:20 | OP ---
PROCEDURE DATE: 03/15/2017 PREOPERATIVE DIAGNOSIS: Right facial cellulitis and abscess. POSTOPERATIVE DIAGNOSIS: Right facial cellulitis and abscess of approximately 3 x 3 cm size. PROCEDURE DONE: 1. Incision and drainage of right facial abscess. 2. Excisional debridement of underlying necrotic tissue and the abscess cavity. SURGEON: Marco Brice MD RESOURCE ECONOMIST: Mireya Robles, PGY-2, resident. ANESTHESIA: Local anesthesia plus sedation. ESTIMATED BLOOD LOSS: Around 10 mL. DRAINS: None. PATHOLOGY: The debrided abscess wall and content as well as the necrotic tissue was sent for the pathology. Second pathology, pus was sent for culture and sensitivity. COMPLICATIONS: None. INTRAOPERATIVE FINDINGS: The patient had approximately 3 x 3 cm right facial abscess at right temporal region. INTRAOPERATIVE STEPS: This is a 26-year-old female who was diagnosed with right facial cellulitis and abscess and the patient was initially managed conservatively with IV antibiotics. After collection of the abscess at most dependent area, the patient was consented for incision and drainage and Brought to the OR, placed supine on the operating table. After induction of the sedation, the local anesthesia was injected and the incision was made surrounding the scab area and abscess cavity was entered and pus was sent for the culture and sensitivity. The patient found to have some necrotic tissue inside the abscess, seemed like infected sebaceous cyst and the cavity was completely debrided and the wall of the cavity was also debrided and it was sent to the table for the pathology. The wound was irrigated and hemostasis was achieved. The wound was packed with iodoform packing and dry sterile dressing was applied. The patient tolerated the procedure well. Count of instruments and gauze was correct. There was no apparent complication. Marco Brice MD cc: [id number] TT: 03/15/2017 18:19:50 jn MTDD
[2017-03-16] MEDS: Piperacillin/Tazobact 3.375 GM in Sodium Chloride 0.9% 100 ML IVPB SCH ×3 (04:04→21:03)
[2017-03-16 06:56] LABS: HEMATOCRIT 35.9 % (34.0-47.0); MEAN CELL VOLUME 84.1 fl (81.0-99.0); MEAN CORPUSCULAR HEMOGLOBIN 26.6 pg (27.0-31.0); MEAN CORPUSCULAR HGB CONC 31.6 g/dL (33.0-37.0); RED CELL DISTRIBUTION WIDTH 15.1 % (11.5-14.5); WHITE BLOOD COUNT 10.8 K/uL (4.8-10.8)
[2017-03-16 07:15] LABS: ALB/GLOB RATIO 1.2 (1.0-2.1); ALKALINE PHOSPHATASE 96 U/L (38-126); ALT/SGPT 72 U/L (9-52); AST/SGOT 40 U/L (14-36); BILIRUBIN,TOTAL 0.2 mg/dl (0.2-1.3); BLOOD UREA NITROGEN 10 mg/dl (7-17); CARBON DIOXIDE 25 mmol/L (22-30); CHLORIDE 106 mmol/L (98-107); GFR AFRICAN-AMERICAN > 60; GLUCOSE,RANDOM 93 mg/dL (65-105); POTASSIUM 4.3 MMOL/L (3.6-5.0); SODIUM 140 mmol/l (132-148); TOTAL PROTEIN 6.5 G/DL (6.3-8.2)
--- NOTE | 2017-03-16 13:17 | CP.PCM.PCO ---
Physician Communication Note - Physician Communication Note Physician Communication Note: Per pt requires IV abx for at least 7 more days
--- NOTE | 2017-03-16 13:47 | PN ---
DATE: 03/16/2017 The patient seen and examined. Interim events noted. Consults noted, appreciated. Surgical interve ntion and procedure noted and appreciated. Infectious disease followup noted and appreciated. The p atmi remains on regular medical floor. The patient feels okay. No specific complaint of chest colby n, no shortness of breath. PHYSICAL EXAMINATION: GENERAL: The patient is in no acute distress. Surgical site is clean. VITAL SIGNS: Temperature 98.4, pulse 58, respirations 18, blood pressure 111/75. HEART: S1, S2 normal, regular. LUNGS: Good bilateral air entry. ABDOMEN: Soft, nontender. EXTREMITIES: No edema, no calf swelling, no tenderness, no acute ischemia. CENTRAL NERVOUS SYSTEM: Essentially unchanged. FACE: Cellulitis site is improving. PLAN: As ordered. Lucas Horn MD cc: [id number] TT: 03/16/2017 13:46:29 Confirmation # [id number] Dictation # [id number] familia
--- NOTE | 2017-03-16 14:10 | CP.PCM.PN ---
<RoblesCharisse pathak - Last Filed: 03/16/17 14:08> Subjective - Date & Time of Evaluation Date of Evaluation: 03/16/17 Time of Evaluation: 14:08 - Subjective Subjective: General Surgery - Dr. Brice Pt S&E. FARZAD. Pt states her pain is much better after I&D of the abscess yesterday. Packing was changed at bedside. She denies any N/V, F/C, SOb/Cp Objective - Vital Signs/Intake and Output Vital Signs (last 24 hours): Temp Pulse Resp BP Pulse Ox 98.4 F 58 L 18 111/75 98 03/16/17 08:20 03/16/17 08:20 03/16/17 08:20 03/16/17 08:20 03/16/17 08:20 - Medications Medications: Current Medications Acetaminophen (Tylenol 325mg Tab) 650 mg PO Q4 PRN PRN Reason: Headache Last Admin: 03/16/17 08:39 Dose: 650 mg Piperacillin Sod/Tazobactam (Sod 3.375 gm/ Sodium Chloride) 100 mls @ 100 mls/ hr IVPB Q8@0500,1300,2100 [facility] Last Admin: 03/16/17 12:10 Dose: 100 mls/hr Vancomycin HCl 1 gm/ Sodium (Chloride) 250 mls @ 166.667 mls/hr IVPB Q12@0200, 1400 [facility] Last Admin: 03/16/17 01:25 Dose: 166.667 mls/hr Lactated Ringer's (Lactated Ringer's) 1,000 mls @ 100 mls/hr IV .Q10H [facility] Last Admin: 03/15/17 17:25 Dose: Not Given Ketorolac Tromethamine (Toradol) 15 mg IVP Q6 PRN PRN Reason: Pain, moderate (4-7) Last Admin: 03/15/17 20:46 Dose: 15 mg Oxycodone/Acetaminophen (Percocet 5/325 Mg Tab) 1 tab PO Q4 PRN PRN Reason: Pain, moderate (4-7) Stop: 03/18/17 12:12 - Labs Labs: 03/16/17 05:35 03/16/17 05:35 PT 11.8 Seconds (9.8-13.1) 03/14/17 12:20 INR 1.0 (0.9-1.2) 03/14/17 12:20 APTT 27.2 Seconds (25.6-37.1) 03/14/17 12:20 - Constitutional Appears: No Acute Distress - Head Exam Additional comments: Right Forehead s/p I&D, cellulitis improved, Iodoform packing changed - Eye Exam Eye Exam: Normal appearance - Respiratory Exam Respiratory Exam: NORMAL BREATHING PATTERN. absent: Respiratory Distress - Cardiovascular Exam Cardiovascular Exam: REGULAR RHYTHM - Neurological Exam Neurological Exam: Alert, Oriented x3 - Psychiatric Exam Psychiatric exam: Normal Affect, Normal Mood - Skin Skin Exam: Dry, Intact Assessment and Plan - Assessment and Plan (Free Text) Assessment: 26 yo F w/ R forehead abscess s/p I&D -Continue IV Abx -Daily Packing changes -Clear for transfer to TCU Dr Yuniel Robles PGY2 <Marco Brice - Last Filed: 03/17/17 12:36> Objective - Vital Signs/Intake and Output Vital Signs (last 24 hours): Temp Pulse Resp BP Pulse Ox 98.4 F 51 L 20 116/77 97 03/17/17 09:36 03/17/17 09:36 03/17/17 09:36 03/17/17 09:36 03/17/17 09:36 - Medications Medications: Current Medications Acetaminophen (Tylenol 325mg Tab) 650 mg PO Q4 PRN PRN Reason: Headache Last Admin: 03/16/17 18:26 Dose: 650 mg Piperacillin Sod/Tazobactam (Sod 3.375 gm/ Sodium Chloride) 100 mls @ 100 mls/ hr IVPB Q8@0500,1300,2100 [facility] Last Admin: 03/17/17 12:06 Dose: 100 mls/hr Vancomycin HCl 1 gm/ Sodium (Chloride) 250 mls @ 166.667 mls/hr IVPB Q12@0200, 1400 [facility] Last Admin: 03/17/17 01:37 Dose: 166.667 mls/hr Lactated Ringer's (Lactated Ringer's) 1,000 mls @ 100 mls/hr IV .Q10H [facility] Last Admin: 03/17/17 08:30 Dose: Not Given Oxycodone/Acetaminophen (Percocet 5/325 Mg Tab) 1 tab PO Q4 PRN PRN Reason: Pain, moderate (4-7) Stop: 03/18/17 12:12 - Labs Labs: 03/16/17 05:35 03/16/17 05:35 PT 11.8 Seconds (9.8-13.1) 03/14/17 12:20 INR 1.0 (0.9-1.2) 03/14/17 12:20 APTT 27.2 Seconds (25.6-37.1) 03/14/17 12:20 Attending/Attestation - Attestation I have personally seen and examined this patient.: Yes I have fully participated in the care of the patient.: Yes I have reviewed all pertinent clinical information, including history, physical exam and plan: Yes Notes (Text): 03/17/17 12:35 Pt was seen and examined at bedside on 03/16/17 Agree with above note and assessment Pt is improving clinically Remove packing tomorrow Local wound care C.w IV antibiotics as per ID Plan d.w pt in detail.
[2017-03-16 16:10] VITALS: RESP 20
--- NOTE | 2017-03-16 19:29 | CP.PCM.PN ---
Subjective - Date & Time of Evaluation Date of Evaluation: 03/16/17 Time of Evaluation: 19:25 - Subjective Subjective: I D NOTE AFTER REVIEW OF SURGICAL NOTES WOULD CONTINUE IV ANTIBIOTIC RX FOR AT LEAST ANOTHER WEEK DISCUSSED C TELEVISION DIRECTOR AND RESIDENT Objective - Vital Signs/Intake and Output Vital Signs (last 24 hours): Temp Pulse Resp BP Pulse Ox 98.5 F 62 20 113/70 99 03/16/17 16:09 03/16/17 16:09 03/16/17 16:09 03/16/17 16:09 03/16/17 16:09 - Medications Medications: Current Medications Acetaminophen (Tylenol 325mg Tab) 650 mg PO Q4 PRN PRN Reason: Headache Last Admin: 03/16/17 18:26 Dose: 650 mg Piperacillin Sod/Tazobactam (Sod 3.375 gm/ Sodium Chloride) 100 mls @ 100 mls/ hr IVPB Q8@0500,1300,2100 [facility] Last Admin: 03/16/17 12:10 Dose: 100 mls/hr Vancomycin HCl 1 gm/ Sodium (Chloride) 250 mls @ 166.667 mls/hr IVPB Q12@0200, 1400 [facility] Last Admin: 03/16/17 15:55 Dose: 166.667 mls/hr Lactated Ringer's (Lactated Ringer's) 1,000 mls @ 100 mls/hr IV .Q10H [facility] Last Admin: 03/15/17 17:25 Dose: Not Given Ketorolac Tromethamine (Toradol) 15 mg IVP Q6 PRN PRN Reason: Pain, moderate (4-7) Last Admin: 03/15/17 20:46 Dose: 15 mg Oxycodone/Acetaminophen (Percocet 5/325 Mg Tab) 1 tab PO Q4 PRN PRN Reason: Pain, moderate (4-7) Stop: 03/18/17 12:12 - Labs Labs: 03/16/17 05:35 03/16/17 05:35 PT 11.8 Seconds (9.8-13.1) 03/14/17 12:20 INR 1.0 (0.9-1.2) 03/14/17 12:20 APTT 27.2 Seconds (25.6-37.1) 03/14/17 12:20
[2017-03-17] MEDS: Lactated Ringer's 1,000 ML IV SCH ×3 (03:05→13:50)
[2017-03-17] MEDS: Piperacillin/Tazobact 3.375 GM in Sodium Chloride 0.9% 100 ML IVPB SCH ×2 (04:11→12:06)
--- NOTE | 2017-03-17 08:45 | CP.PCM.PN ---
<Catie English - Last Filed: 03/17/17 14:12> Subjective - Date & Time of Evaluation Date of Evaluation: 03/17/17 Time of Evaluation: 07:10 - Subjective Subjective: Patient seen and examined this AM. NELSONCalderonO. Patient states that pain is improving and she has no vision problems or fevers. No complaints or concerns Objective - Vital Signs/Intake and Output Vital Signs (last 24 hours): Temp Pulse Resp BP Pulse Ox 98.4 F 69 20 124/80 99 03/17/17 00:07 03/17/17 00:07 03/17/17 00:07 03/17/17 00:07 03/17/17 00:07 - Medications Medications: Current Medications Acetaminophen (Tylenol 325mg Tab) 650 mg PO Q4 PRN PRN Reason: Headache Last Admin: 03/16/17 18:26 Dose: 650 mg Piperacillin Sod/Tazobactam (Sod 3.375 gm/ Sodium Chloride) 100 mls @ 100 mls/ hr IVPB Q8@0500,1300,2100 [facility] Last Admin: 03/17/17 04:11 Dose: 100 mls/hr Vancomycin HCl 1 gm/ Sodium (Chloride) 250 mls @ 166.667 mls/hr IVPB Q12@0200, 1400 [facility] Last Admin: 03/17/17 01:37 Dose: 166.667 mls/hr Lactated Ringer's (Lactated Ringer's) 1,000 mls @ 100 mls/hr IV .Q10H [facility] Last Admin: 03/17/17 08:30 Dose: Not Given Ketorolac Tromethamine (Toradol) 15 mg IVP Q6 PRN PRN Reason: Pain, moderate (4-7) Last Admin: 03/17/17 03:01 Dose: 15 mg Oxycodone/Acetaminophen (Percocet 5/325 Mg Tab) 1 tab PO Q4 PRN PRN Reason: Pain, moderate (4-7) Stop: 03/18/17 12:12 - Labs Labs: 03/16/17 05:35 03/16/17 05:35 PT 11.8 Seconds (9.8-13.1) 03/14/17 12:20 INR 1.0 (0.9-1.2) 03/14/17 12:20 APTT 27.2 Seconds (25.6-37.1) 03/14/17 12:20 - Constitutional Appears: Well, Non-toxic, No Acute Distress - Head Exam Head Exam: ATRAUMATIC, NORMOCEPHALIC Additional comments: Dressing on Right forehead c/d/i. Abscess packed with iodine gauze, no swelling or surrounding erythema, minimal purulent drainage, no active bleeding - Eye Exam Eye Exam: EOMI, Normal appearance. absent: Conjunctival injection, Scleral icterus - ENT Exam ENT Exam: Mucous Membranes Moist, Normal Oropharynx - Respiratory Exam Respiratory Exam: NORMAL BREATHING PATTERN. absent: Accessory Muscle Use, Respiratory Distress - GI/Abdominal Exam GI & Abdominal Exam: absent: Distended - Extremities Exam Extremities Exam: absent: Calf Tenderness, Pedal Edema, Tenderness - Neurological Exam Neurological Exam: Alert, Awake, Oriented x3 - Psychiatric Exam Psychiatric exam: Normal Affect, Normal Mood - Skin Skin Exam: Dry, Intact (except as noted in the head exam), Normal Color, Warm Assessment and Plan - Assessment and Plan (Free Text) Assessment: 26 yo F w/ R forehead abscess POD#2 s/p I&D -Patient improving clinically -Continue IV Abx per ID recs -Local wound care -Clear for transfer to TCU Discussed with Dr. Yuniel English, PGY-1 <Marco Brice - Last Filed: 03/20/17 15:39> Objective - Vital Signs/Intake and Output Vital Signs (last 24 hours): Temp Pulse Resp BP Pulse Ox 98.3 F 79 20 109/68 97 03/17/17 16:10 03/17/17 16:10 03/17/17 16:10 03/17/17 16:10 03/17/17 16:10 - Labs Labs: 03/16/17 05:35 03/16/17 05:35 PT 11.8 Seconds (9.8-13.1) 03/14/17 12:20 INR 1.0 (0.9-1.2) 03/14/17 12:20 APTT 27.2 Seconds (25.6-37.1) 03/14/17 12:20 Attending/Attestation - Attestation I have personally seen and examined this patient.: Yes I have fully participated in the care of the patient.: Yes I have reviewed all pertinent clinical information, including history, physical exam and plan: Yes Notes (Text): 03/20/17 15:39 Pt was seen and examined at bedside on 03/17/17 Agree with above note and assessment
[2017-03-17 09:36] VITALS: O2SAT 97
--- NOTE | 2017-03-17 10:12 | PN ---
DATE: 03/17/2017 The patient seen and examined. Interim events noted. Consults noted, appreciated. Infectious disea se and surgical followup and intervention noted and appreciated. The patient remains in the regular medical floor in isolation for MRSA. Feels okay. Pain is improved. No chest pain, no shortness of breath. No side effect from medication. PHYSICAL EXAMINATION: GENERAL: The patient is in no acute distress. VITAL SIGNS: Stable. HEART: S1, S2 normal, regular. LUNGS: Good bilateral air entry. ABDOMEN: Soft, nontender. EXTREMITIES: No edema, no calf swelling, no tenderness, no acute ischemia. CENTRAL NERVOUS SYSTEM: Essentially unchanged. Surgical site is clean, under surgical dressing with packing. DIAGNOSTIC DATA: Available diagnostic data reviewed. Overall, the patient is medically stable and improving. The patient will require at least 1 week of intravenous antibiotic and daily surgical care. PLAN: As ordered. Case and plan discussed with patient. Lucas Horn MD cc: [id number] TT: 03/17/2017 09:32:28 Confirmation # [id number] Dictation # [id number] tn
[2017-03-17 16:11] VITALS: BP 109/68; PULSE 79; TEMP 98.3
== END 2017-03-17 18:58 | DRG 264 ==
LOC: H.ER 16:47 → H.ERHOLD 21:09 → H.MEDSURG1 23:26 → OBSVTOIN 03-13 09:40 → H.MEDSURG1 03-14 05:23
PROVIDERS: ADMIT Internal Medicine; ATTEND Internal Medicine
PROC: 3E0234Z Introduction of Serum, Toxoid and Vaccine into Muscle, Percutaneous Approach (ICD-10-PCS; 2017-03-13)
PROC: 0JB10ZZ Excision of Face Subcutaneous Tissue and Fascia, Open Approach (ICD-10-PCS; principal; 2017-03-15 10:15)
DX: L03.211 Cellulitis of face (principal); Z68.42 Body mass index [BMI] 45.0-49.9, adult; E66.01 Morbid (severe) obesity due to excess calories; B95.62 Methicillin resistant Staphylococcus aureus infection as the cause of diseases classified elsewhere; M41.9 Scoliosis, unspecified; Z23 Encounter for immunization

== ENCOUNTER 2017-03-17 12:24 | Inpatient (IN) | payer MEDICAID ==
[2017-03-17 19:41] VITALS: BMI 45.7
[2017-03-17 20:15] VITALS: RESP 20
[2017-03-17] MEDS ORDERED: Patient's Own Med (Piperacill/Tazo 3.375gm In Dex [Zosyn 3.375 Gm Iv] 3.375 GM) IVPB SCH (22:00)
[2017-03-17] MEDS ORDERED: Piperacillin/Tazobact 3.375 GM in Sodium Chloride 0.9% 100 ML IVPB SCH (23:00)
[2017-03-18] MEDS: Piperacillin/Tazobact 3.375 GM in Sodium Chloride 0.9% 100 ML IVPB SCH ×3 (06:10→21:45)
--- NOTE | 2017-03-18 08:29 | CP.PCM.PN ---
Subjective - Date & Time of Evaluation Date of Evaluation: 03/18/17 Time of Evaluation: 08:27 - Subjective Subjective: SURGERY NOTE FOR DR. KAYE 26F seen and examined at bedside. Moved to TCU over night. Patient has no complaints. Objective - Vital Signs/Intake and Output Vital Signs (last 24 hours): Temp Pulse Resp BP Pulse Ox 97.7 F 50 L 20 119/72 100 03/18/17 08:18 03/18/17 08:18 03/18/17 08:18 03/18/17 08:18 03/18/17 08:18 - Medications Medications: Current Medications Acetaminophen (Tylenol 325mg Tab) 650 mg PO Q4 PRN PRN Reason: Pain, moderate (4-7) Vancomycin HCl 1 gm/ Sodium (Chloride) 250 mls @ 166.667 mls/hr IVPB Q12H [facility] Last Admin: 03/18/17 04:10 Dose: 166.667 mls/hr Piperacillin Sod/Tazobactam (Sod 3.375 gm/ Sodium Chloride) 100 mls @ 100 mls/ hr IVPB Q8@0600,1400,2200 [facility] Last Admin: 03/18/17 06:10 Dose: 100 mls/hr - Constitutional Appears: Non-toxic, No Acute Distress - Head Exam Additional comments: right side site of incision and drainage of abscess dressed with 4by4 and tape. mild serous drainage - Respiratory Exam Respiratory Exam: Clear to Ausculation Bilateral, NORMAL BREATHING PATTERN - Cardiovascular Exam Cardiovascular Exam: REGULAR RHYTHM, +S1, +S2 Assessment and Plan - Assessment and Plan (Free Text) Assessment: 26F s/p I&D of forehead abscess POD3 - continue Abx and dressing changes Further recs discuss with Dr Yuniel Tam, PGY1
[2017-03-18] MEDS ORDERED: Patient's Own Med (Vancomycin 1 Gm [Vancomycin 1gm In Normal Saline Addvantage] 1 GM) IVPB SCH (09:00)
--- NOTE | 2017-03-18 10:01 | HP ---
CHIEF COMPLAINT: Facial abscess. HISTORY OF PRESENT ILLNESS: This is a 26-year-old female without significant past medical history wh o was admitted to medical floor for right temporal abscess which was positive for MRSA. The patient was treated with IV antibiotic and patient was transferred to transitional care unit yesterday for co mpletion of treatment. Currently, patient has minimal pain at the site. REVIEW OF SYSTEMS: Negative for headache, dizziness, syncope, loss of consciousness, chest pain, sherin rtness of breath, nausea, vomiting, diarrhea, constipation, any new joint or extremity pain. Review of systems of all other organ systems is unremarkable. PAST MEDICAL HISTORY: Unremarkable. PAST SURGICAL HISTORY: Unremarkable. PERSONAL HISTORY: The patient is currently a nonsmoker, nondrinker, no substance abuse. MEDICATIONS: The patient's medications as per reconciliation sheet, which was reviewed and ordered. FAMILY HISTORY: Noncontributory. ALLERGIES: The patient is not allergic to any medication. PHYSICAL EXAMINATION: GENERAL: Well-built, well-nourished, overweight 26-year-old female in no acute distress. VITAL SIGNS: Temperature afebrile, pulse 88, respirations 18, blood pressure 136/76. HEENT: The patient has a right temporal area of about 1 cm clean incision and drainage site, which i s clean and healing. There is no acute purulent discharge, previously noticed swelling also has reso lved. No sign of surrounding cellulitis. HEENT: Pupils reacting to light. No JVD, no thyromegaly, no lymphadenopathy, no nystagmus. Normoce phalic, atraumatic skull. HEART: S1, S2 normal, regular. No significant murmur, gallop or rub is heard. LUNGS: Shows good bilateral air exchange. No rales or rhonchi. ABDOMEN: Soft, nontender, no organomegaly, no fluid. Bowel sounds are plus. EXTREMITIES: No edema, no calf swelling, no tenderness. No acute ischemia. CENTRAL NERVOUS SYSTEM: Essentially unchanged. There is no sign of any acute gross focal motor or s ensory neurological deficit. DIAGNOSTIC DATA: Available diagnostic data reviewed. As mentioned earlier, the patient has wound cu lture positive for MRSA. ADMITTING IMPRESSION: The patient has cellulitis, methicillin resistant staphylococcus aureus wound infection, morbid obesity. PLAN: As ordered. Case and plan discussed with patient. Lucas Horn MD cc: [id number] TT: 03/18/2017 10:00:45 jn
[2017-03-19] MEDS: Piperacillin/Tazobact 3.375 GM in Sodium Chloride 0.9% 100 ML IVPB SCH ×3 (06:20→21:37)
--- NOTE | 2017-03-19 06:54 | CP.PCM.PN ---
Subjective - Date & Time of Evaluation Date of Evaluation: 03/19/17 Time of Evaluation: 06:52 - Subjective Subjective: SURGERY NOTE FOR DR. KAYE 26F seen and examined at bedside. Patient denies pain at site of incision, denies headache or fevers. Objective - Vital Signs/Intake and Output Vital Signs (last 24 hours): Temp Pulse Resp BP Pulse Ox 98.1 F 51 L 20 110/69 100 03/18/17 22:54 03/18/17 22:54 03/18/17 22:54 03/18/17 22:54 03/18/17 22:54 - Medications Medications: Current Medications Acetaminophen (Tylenol 325mg Tab) 650 mg PO Q4 PRN PRN Reason: Pain, moderate (4-7) Vancomycin HCl 1 gm/ Sodium (Chloride) 250 mls @ 166.667 mls/hr IVPB Q12H [facility] Last Admin: 03/19/17 04:01 Dose: 166.667 mls/hr Piperacillin Sod/Tazobactam (Sod 3.375 gm/ Sodium Chloride) 100 mls @ 100 mls/ hr IVPB Q8@0600,1400,2200 [facility] Last Admin: 03/19/17 06:20 Dose: 100 mls/hr - Constitutional Appears: Non-toxic, No Acute Distress - Head Exam Additional comments: right side forehead site of I&D dressed with 4by4 and tape. very mild serous pus tinged drainage - Cardiovascular Exam Cardiovascular Exam: REGULAR RHYTHM, +S1, +S2 Assessment and Plan - Assessment and Plan (Free Text) Assessment: 26F s/p I&D of forehead abscess POD4 - continue Abx and dressing changes - no further surgical intervention at this time Further recs discuss with Dr Yuniel Tam, PGY1
--- NOTE | 2017-03-19 08:30 | PN ---
DATE: 03/19/2017 The patient seen and examined. Interim events noted. The patient remains in transitional care unit on IV antibiotic for facial cellulitis. The patient feels okay. Pain is controlled. No chest pain, no shortness of breath, no ____ medications. PHYSICAL EXAMINATION: GENERAL: The patient is in no acute distress. VITAL SIGNS: Stable. HEART: S1, S2 normal, regular. LUNGS: Good bilateral air exchange. ABDOMEN: Soft, nontender. EXTREMITIES: No edema, no calf swelling, no tenderness. No acute ischemia. CENTRAL NERVOUS SYSTEM: Essentially unchanged. Surgical site is clean. Overall, patient is slowly improving. PLAN: As ordered. Lucas Horn MD cc: [id number] TT: 03/19/2017 08:29:57 Confirmation # [id number] Dictation # [id number]
[2017-03-20] MEDS: Piperacillin/Tazobact 3.375 GM in Sodium Chloride 0.9% 100 ML IVPB SCH ×3 (06:11→21:35)
--- NOTE | 2017-03-20 09:29 | PN ---
DATE: 03/20/2017 The patient seen and examined. Interim events noted. The patient remains in transitional care unit. Surgical followup noted and appreciated. The patient feels okay. Pain is adequately controlled. No fever. PHYSICAL EXAMINATION: GENERAL: The patient is in no acute distress. VITAL SIGNS: Stable. HEART: S1, S2 normal, regular. LUNGS: Good bilateral air entry. ABDOMEN: Soft, nontender. EXTREMITIES: No edema, no calf swelling, no tenderness, no acute ischemia. CENTRAL NERVOUS SYSTEM: Essentially unchanged. SKIN: Surgical incision site is clean without any discharge or surrounding cellulitis or tenderness. Overall, patient is clinically stable and improving. The patient does want to go today for [facility] appointment. The patient is clinically stable for same. PLAN: As ordered. Lucas Horn MD cc: [id number] TT: 03/20/2017 09:29:31 Confirmation # [id number] Dictation # [id number]
[2017-03-21] MEDS: Piperacillin/Tazobact 3.375 GM in Sodium Chloride 0.9% 100 ML IVPB SCH ×3 (06:09→21:43)
--- NOTE | 2017-03-21 15:45 | CP.PCM.PN ---
Subjective - Date & Time of Evaluation Date of Evaluation: 03/21/17 - Subjective Subjective: The patient seen and examined. Interim events noted. The patient remains in transitional care unit. Surgical followup noted and appreciated. The patient feels okay. Pain is adequately controlled. No fever. PHYSICAL EXAMINATION: GENERAL: The patient is in no acute distress. VITAL SIGNS : Stable. HEART: S1, S2 normal, regular. LUNGS: Good bilateral air entry. ABDOMEN: Soft, nontender. EXTREMITIES: No edema, no calf swelling, no tenderness, no acute ischemia. CENTRAL NERVOUS SYSTEM: Essentially unchanged. SKIN: Surgical incision site healing and is clean without any discharge or surrounding cellulitis or tenderness. Overall, patient is clinically stable and improving. T Plan: As ordered. Objective - Vital Signs/Intake and Output Vital Signs (last 24 hours): Temp Pulse Resp BP Pulse Ox 97.9 F 60 20 115/73 98 03/21/17 07:59 03/21/17 07:59 03/21/17 07:59 03/21/17 07:59 03/21/17 07:59 - Medications Medications: Current Medications Acetaminophen (Tylenol 325mg Tab) 650 mg PO Q4 PRN PRN Reason: Pain, moderate (4-7) Vancomycin HCl 1 gm/ Sodium (Chloride) 250 mls @ 166.667 mls/hr IVPB Q12H [facility] Last Admin: 03/21/17 04:05 Dose: 166.667 mls/hr Piperacillin Sod/Tazobactam (Sod 3.375 gm/ Sodium Chloride) 100 mls @ 100 mls/ hr IVPB Q8@0600,1400,2200 [facility] Last Admin: 03/21/17 06:09 Dose: 100 mls/hr Assessment and Plan - Assessment and Plan (Free Text) Assessment: Patient was personally seen and examined by me in rounds with residents. Available labs and diagnostic data reviewed. Case, patient's condition and management plan discussed with residents in rounds. Agree with resident's progress note. Plan: As ordered.
[2017-03-22] MEDS: Piperacillin/Tazobact 3.375 GM in Sodium Chloride 0.9% 100 ML IVPB SCH ×3 (06:25→22:03)
[2017-03-22 07:15] LABS: MEAN CELL VOLUME 83.6 fl (81.0-99.0); MEAN CORPUSCULAR HEMOGLOBIN 26.5 pg (27.0-31.0); MEAN CORPUSCULAR HGB CONC 31.7 g/dL (33.0-37.0); RED CELL DISTRIBUTION WIDTH 15.2 % (11.5-14.5); WHITE BLOOD COUNT 10.3 K/uL (4.8-10.8)
[2017-03-22 07:26] LABS: ALB/GLOB RATIO 1.2 (1.0-2.1); ALKALINE PHOSPHATASE 81 U/L (38-126); ALT/SGPT 53 U/L (9-52); AST/SGOT 21 U/L (14-36); BILIRUBIN,TOTAL 0.1 mg/dl (0.2-1.3); BLOOD UREA NITROGEN 14 mg/dl (7-17); CALCIUM 9.3 mg/dL (8.4-10.2); CARBON DIOXIDE 22 mmol/L (22-30); CHLORIDE 107 mmol/L (98-107); GFR AFRICAN-AMERICAN > 60; GLUCOSE,RANDOM 84 mg/dL (65-105); POTASSIUM 4.4 MMOL/L (3.6-5.0); SODIUM 140 mmol/l (132-148); TOTAL PROTEIN 7.7 G/DL (6.3-8.2)
--- NOTE | 2017-03-22 10:01 | CP.PCM.PN ---
Subjective - Date & Time of Evaluation Date of Evaluation: 03/22/17 Time of Evaluation: 07:00 - Subjective Subjective: The patient seen and examined. Interim events noted. The patient remains in transitional care unit. Surgical followup noted and appreciated. The patient feels okay. Pain is adequately controlled. No fever. PHYSICAL EXAMINATION: GENERAL: The patient is in no acute distress. VITAL SIGNS : Stable. HEART: S1, S2 normal, regular. LUNGS: Good bilateral air entry. ABDOMEN: Soft, nontender. EXTREMITIES: No edema, no calf swelling, no tenderness, no acute ischemia. CENTRAL NERVOUS SYSTEM: Essentially unchanged. SKIN: Surgical incision site is clean without any discharge or surrounding cellulitis or tenderness. Overall, patient is clinically stable and improving. Plan: As ordered Discuss with Pt Objective - Vital Signs/Intake and Output Vital Signs (last 24 hours): Temp Pulse Resp BP Pulse Ox 98.1 F 54 L 20 119/57 L 99 03/22/17 08:01 03/22/17 08:01 03/22/17 08:01 03/22/17 08:01 03/22/17 08:01 - Medications Medications: Current Medications Acetaminophen (Tylenol 325mg Tab) 650 mg PO Q4 PRN PRN Reason: Pain, moderate (4-7) Vancomycin HCl 1 gm/ Sodium (Chloride) 250 mls @ 166.667 mls/hr IVPB Q12H [facility] Last Admin: 03/22/17 04:26 Dose: 166.667 mls/hr Piperacillin Sod/Tazobactam (Sod 3.375 gm/ Sodium Chloride) 100 mls @ 100 mls/ hr IVPB Q8@0600,1400,2200 [facility] Last Admin: 03/22/17 06:25 Dose: 100 mls/hr - Labs Labs: 03/22/17 07:06 03/22/17 07:06
[2017-03-23] MEDS: Piperacillin/Tazobact 3.375 GM in Sodium Chloride 0.9% 100 ML IVPB SCH (07:08)
[2017-03-23 07:55] VITALS: BP 114/64; PULSE 76; TEMP 98.2; O2SAT 99
--- NOTE | 2017-03-24 12:51 | CP.PCM.PN ---
Subjective - Date & Time of Evaluation Date of Evaluation: 03/23/17 Time of Evaluation: 07:00 - Subjective Subjective: The patient is seen and examined. Interim events noted. The patient remains in transitional care care unit. The patient feels okay. No specific complaints , although the patient is not a good historian. PHYSICAL EXAMINATION: GENERAL: The patient is in no acute distress. VITAL SIGNS: Stable. HEART: S1, S2 normal, regular. LUNGS: Good bilateral air entry. ABDOMEN: Soft, nontender. NG tube is in good position and functioning. EXTREMITIES: No edema, no calf swelling, no tenderness, no acute ischemia. CENTRAL NERVOUS SYSTEM: Essentially unchanged. Ski: Surgical site is clean and healing. Available diagnostic data reviewed. Over all pt is clinically stable. WIll d/c t home today. pt will be f/u with PCP Plan: As ordered Objective - Vital Signs/Intake and Output Vital Signs (last 24 hours): Temp Pulse Resp BP Pulse Ox 98.2 F 76 20 114/64 99 03/23/17 07:54 03/23/17 07:54 03/23/17 07:54 03/23/17 07:54 03/23/17 07:54 - Labs Labs: 03/22/17 07:06 03/22/17 07:06
--- NOTE | 2017-03-24 12:53 | CP.PCM.DIS ---
Provider - Provider Date of Admission: 03/17/17 19:41 Attending physician: Lucas Horn MD Time Spent in preparation of Discharge (in minutes): 35 Hospital Course - Lab Results Lab Results: Most Recent Lab Values WBC 10.3 K/uL (4.8-10.8) 03/22/17 07:06 RBC 4.43 Mil/uL (3.80-5.20) 03/22/17 07:06 Hgb 11.7 g/dL (12.0-16.0) L 03/22/17 07:06 Hct 37.0 % (34.0-47.0) 03/22/17 07:06 MCV 83.6 fl (81.0-99.0) 03/22/17 07:06 MCH 26.5 pg (27.0-31.0) L 03/22/17 07:06 MCHC 31.7 g/dL (33.0-37.0) L 03/22/17 07:06 RDW 15.2 % (11.5-14.5) H 03/22/17 07:06 Plt Count 316 K/uL (130-400) 03/22/17 07:06 Sodium 140 mmol/l (132-148) 03/22/17 07:06 Potassium 4.4 MMOL/L (3.6-5.0) 03/22/17 07:06 Chloride 107 mmol/L (98-107) 03/22/17 07:06 Carbon Dioxide 22 mmol/L (22-30) 03/22/17 07:06 Anion Gap 16 (10-20) 03/22/17 07:06 BUN 14 mg/dl (7-17) 03/22/17 07:06 Creatinine 0.9 mg/dL (0.7-1.2) 03/22/17 07:06 Est GFR ( Amer) > 60 03/22/17 07:06 Est GFR (Non-Af Amer) > 60 03/22/17 07:06 Random Glucose 84 mg/dL (65-105) 03/22/17 07:06 Calcium 9.3 mg/dL (8.4-10.2) 03/22/17 07:06 Total Bilirubin 0.1 mg/dl (0.2-1.3) L 03/22/17 07:06 AST 21 U/L (14-36) 03/22/17 07:06 ALT 53 U/L (9-52) H D 03/22/17 07:06 Alkaline Phosphatase 81 U/L (38-126) 03/22/17 07:06 Total Protein 7.7 G/DL (6.3-8.2) 03/22/17 07:06 Albumin 4.1 g/dL (3.5-5.0) 03/22/17 07:06 Globulin 3.6 gm/dL (2.2-3.9) 03/22/17 07:06 Albumin/Globulin Ratio 1.2 (1.0-2.1) 03/22/17 07:06 - Hospital Course Hospital Course: Admitted to TCU. IV Abx given. treatment completed. pt remained stale and d/jaimie home. will be f/u with PCP Discharge Plan - Follow Up Plan Condition: GOOD Disposition: HOME/ ROUTINE Instructions: Cellulitis (DC), Cellulitis (GEN), Abscess (GEN) Additional Instructions: s/p Rt temporal area I&D site cleanse with saline and dry dsg daily as needed Referrals: Jenna Huang MD [Family Provider] -
== END 2017-03-23 11:00 | disposition home or self-care (01) | DRG 278 ==
LOC: H.TCU 19:41
PROVIDERS: ADMIT Internal Medicine; ATTEND Internal Medicine
PROC: F08Z4ZZ Home Management Treatment (ICD-10-PCS; principal; 2017-03-17)
DX: L02.01 Cutaneous abscess of face (principal); Z68.42 Body mass index [BMI] 45.0-49.9, adult; B95.62 Methicillin resistant Staphylococcus aureus infection as the cause of diseases classified elsewhere; E66.01 Morbid (severe) obesity due to excess calories

== ENCOUNTER 2018-07-22 19:35 | Emergency (ER) | payer MEDICAID, OTHER ==
[2018-07-22 19:36] VITALS: BMI 49.3
[2018-07-22 19:40] VITALS: BP 110/72; PULSE 87; RESP 18; TEMP 99.8; O2SAT 100
[2018-07-22] MEDS ORDERED: Oxycodone/Acetaminophen 5/325 mg Tab PO STA (20:12)
--- NOTE | 2018-07-22 20:14 | ED PDOC ---
Upper Extremity Pain/Injury Time Seen by Provider: 07/22/18 19:45 Chief Complaint (Nursing): Finger,Hand,&Wrist Chief Complaint (Provider): Left middle finger pain and swelling x 2 days, localized History Per: Patient History/Exam Limitations: no limitations Onset/Duration Of Symptoms: Days Current Symptoms Are (Timing): Still Present Quality: Dull Severity: Severe Pain Scale Rating Of: 10 Past Medical History Reviewed: Historical Data, Nursing Documentation, Vital Signs Vital Signs: Last Vital Signs Temp 99.8 F H 07/22/18 19:38 Pulse 87 07/22/18 19:38 Resp 18 07/22/18 19:38 BP 110/72 07/22/18 19:38 Pulse Ox 100 07/22/18 19:38 - Medical History PMH: Kidney Stones - Surgical History Surgical History: No Surg Hx - Family History Family History: States: Unknown Family Hx - Living Arrangements Living Arrangements: With Family - Social History Current smoker - smoking cessation education provided: No - Immunization History Hx Tetanus Toxoid Vaccination: No Hx Influenza Vaccination: No Hx Pneumococcal Vaccination: No - Home Medications Home Medications: Ambulatory Orders Medication Instructions Recorded Clindamycin [Cleocin] 300 mg PO QID #40 cap 07/22/18 oxyCODONE/Acetaminophen [Percocet 1 ea PO Q6H PRN #15 tab 07/22/18 5/325 mg Tab] - Allergies Allergies/Adverse Reactions: Allergies Allergy/AdvReac Type Severity Reaction Status Date / Time No Known Allergies Allergy Verified 07/22/18 19:38 Review of Systems ROS Statement: Except As Marked, All Systems Reviewed And Found Negative Constitutional: Negative for: Fever, Chills Skin: Positive for: Other Physical Exam - Reviewed Nursing Documentation Reviewed: Yes Vital Signs Reviewed: Yes - Physical Exam Appears: Positive for: Well, Non-toxic, No Acute Distress Head Exam: Positive for: ATRAUMATIC, NORMAL INSPECTION, NORMOCEPHALIC Skin: Positive for: Warm. Negative for: Normal Color (Tenderness and erythema of the disal left middle finger, no active drainage, no fluctulance ) Eye Exam: Positive for: Normal appearance ENT: Positive for: Normal ENT Inspection Neck: Positive for: Normal Cardiovascular/Chest: Negative for: Bradycardia, Tachycardia Respiratory: Negative for: Decreased Breath Sounds, Respiratory Distress Back: Positive for: Normal Inspection Extremity: Positive for: Normal ROM Neurologic/Psych: Positive for: Alert, Oriented - ECG O2 Sat by Pulse Oximetry: 100 Medical Decision Making Medical Decision Making: Discussed warm compresses and antibiotics. Follow-up in 2 days Disposition - Clinical Impression Clinical Impression: Cellulitis - Disposition Referrals: Noe Miranda MD [Medical Doctor] - Disposition: Routine/Home Disposition Time: 20:13 Condition: GOOD Prescriptions: Clindamycin [Cleocin] 300 mg PO QID #40 cap oxyCODONE/Acetaminophen [Percocet 5/325 mg Tab] 1 ea PO Q6H PRN #15 tab PRN Reason: Pain, Severe (8-10) Instructions: Skin Abscess
[2018-07-22] MEDS ORDERED: Oxycodone/Acetaminophen 5/325 mg Tab ONE (20:26)
== END 2018-07-22 20:32 | disposition home or self-care (01) ==
LOC: H.ER 19:35
DX: L03.012 Cellulitis of left finger (principal)